=== PATIENT | female | born 1995 | race African-American/Black ===

== ENCOUNTER 2022-04-04 13:27 | Outpatient (CLI) | payer MEDICAID | END 2022-04-04 13:28 | disposition home or self-care (01) | LOC: CSHULT 13:27 | PROVIDERS: ATTEND Nurse Practitioner Women's Health | DX: Z87.42 Personal history of other diseases of the female genital tract (principal); N88.8 Other specified noninflammatory disorders of cervix uteri | CPT/HCPCS: 76856 ==